=== PATIENT | female | born 2000 | race African-American/Black ===

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

== ENCOUNTER 2021-03-22 17:55 | Emergency (ER) | payer OTHER ==
[~2021-03-22] VITALS: Ht 162.6 cm; Wt 86.9 kg
[2021-03-22 18:12] VITALS: BP 120/51
--- NOTE | 2021-03-22 18:16 | NUR ---
PATIENT AMBULATED TO BED 4.
--- NOTE | 2021-03-22 19:15 | NUR ---
GAVE REPORT TO BETHANIE RM. TRANSFER OF CARE AT THIS TIME.
[2021-03-22 19:36] VITALS: BP 120/51
--- NOTE | 2021-03-22 19:36 | NUR ---
PATIENT CLEARED FOR DISCHARGE AT THIS TIME. PATIENT ADVISED OF NEGATIVE HCG RESULT, ADVISED TO FOLLOW UP WITH OB AND RETURN IF CONDITION WORSENS. DENIES ANY FURTHER QUESTIONS.
[2021-03-22] MEDS ORDERED: ACET-2619 PO (19:37)
== END 2021-03-22 19:36 | disposition home or self-care (01) ==
LOC: MED 17:55
DX: R10.2 Pelvic and perineal pain (principal); Z32.02 Encounter for pregnancy test, result negative; Z79.899 Other long term (current) drug therapy
CPT/HCPCS: 81002; 81025; 99282

== ENCOUNTER 2021-03-28 15:07 | Emergency (ER) | payer OTHER ==
[~2021-03-28] VITALS: Ht 165.1 cm; Wt 88.0 kg
[~2021-03-28 15:07] MED LIST: ACET-2619 PO
[2021-03-28 15:09] VITALS: BP 129/80
--- NOTE | 2021-03-28 15:17 | NUR ---
PT AMB TO BED 12.
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
--- NOTE | 2021-03-28 15:33 | NUR ---
DR. HUSAIN AT PT BEDSIDE FOR FURTHER EVALUATION.
--- NOTE | 2021-03-28 15:35 | NUR ---
Female X Ray Inspector accompanied female patient for Breast Exam.
[2021-03-28] MEDS: HYDROcodone/APAP 5/325 MG 1 TAB TAB PO ONE (15:43)
--- NOTE | 2021-03-28 15:56 | NUR ---
LEARNING MANAGER AT PT BEDSIDE.
--- NOTE | 2021-03-28 17:05 | NUR ---
PT RESTING IN BED, VISIBLE EQUAL RISE AND FALL OF CHEST, VSS, WILL CONTINUE TO MONITOR.
[2021-03-28] MEDS ORDERED: IBUP-2213 PO (17:17)
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
--- NOTE | 2021-03-28 17:55 | NUR ---
Patient discharged with v/s stable. Written and verbal after care instructions given [facility] [employer] [facility] and explained. Patient alert, oriented and verbalized understanding of instructions. Ambulatory with steady gait. All questions addressed prior to discharge. ID band removed. Patient advised to follow up with PMD. Rx of IBUPROFEN given. Patient educated on indication of medication including possible reaction and side effects. Opportunity to ask questions provided and answered.
[2021-03-28 18:11] VITALS: BP 124/74
== END 2021-03-28 18:12 | disposition home or self-care (01) ==
LOC: MED 15:07
DX: S90.32XA Contusion of left foot, initial encounter (principal); R07.89 Other chest pain; N64.4 Mastodynia; Z79.1 Long term (current) use of non-steroidal anti-inflammatories (NSAID); Z79.899 Other long term (current) drug therapy; V89.2XXA Person injured in unspecified motor-vehicle accident, traffic, initial encounter; Y93.89 Activity, other specified; Y92.410 Unspecified street and highway as the place of occurrence of the external cause; Y99.8 Other external cause status
CPT/HCPCS: 71045; 73630; 99284; Q0092

== ENCOUNTER 2021-07-10 19:31 | Emergency (ER) | payer OTHER ==
[~2021-07-10] VITALS: Ht 165.1 cm; Wt 81.6 kg
[~2021-07-10 19:31] MED LIST changes: +IBUP-2213 PO
[2021-07-10 19:39] VITALS: BP 137/85
--- NOTE | 2021-07-10 19:42 | NUR ---
PT TAKEN TO LOBBY.
--- NOTE | 2021-07-10 19:53 | NUR ---
PT TAKEN TO BED 2
--- NOTE | 2021-07-10 19:53 | NUR ---
Jannie tom in [facility] - 07/10/21 at 1953 by [facility] PT TAKENT O BED 02
--- NOTE | 2021-07-10 19:59 | NUR ---
LABS DRWN AT BEDSIDE
[2021-07-10] MEDS ORDERED: MORPHINE SULFATE 4 MG/ML SYR IVP ONE (20:00)
[2021-07-10] MEDS ORDERED: ONDANSETRON 4 MG/2 ML VIAL IVP ONE (20:00)
--- NOTE | 2021-07-10 20:05 | NUR ---
21 Y/O FEMALE BIB FAMILY, C/O LRQ PAIN X2 HRS. PT STATES PAIN CAME SUDDENLY WHILE DOING DISHES AT HOME; DENIES TRAUMA. +N/V, DENIES DIARRHEA; SKIN IS PINK/WARM/DRY; AAOX4 AND STATES SHE CANNOT WALK DUE TO THE PAIN BUT IS NORMALLY AMBULATORY; LUNGS CLEAR BL; HR EVEN AND REGULAR; PT DENIES ANY FEVER, CP, SOB, OR COUGH AT THIS TIME; PT DENIES ANY DYSURIA OR CONSTIPATION. PATIENT STATES PAIN OF 9/10 AT THIS TIME; VSS; PATIENT POSITIONED FOR COMFORT; HOB ELEVATED; BEDRAILS UP X2; BED DOWN. ER MD MADE AWARE OF PT STATUS. PT DENIES PMH, ALLERGIES, OR MEDS.
--- NOTE | 2021-07-10 20:10 | NUR ---
URINE COLLECTED BY TECHNICAL SUPPORT SPECIALIST
[2021-07-10 20:21] LABS: BASOPHILS # (AUTO) 0.1 K/uL (0.00-0.22); BASOPHILS % (AUTO) 0.9 % (0.0-2.0); EOSINOPHILS % (AUTO) 0.7 % (0.0-4.0); HEMATOCRIT 41.9 % (36-48); LYMPHOCYTES # (AUTO) 2.6 K/uL (2.5-16.5); MEAN CORPUSCULAR HEMOGLOBIN 31 pg (27-31); MEAN CORPUSCULAR HGB CONC 34 g/dL (33-37); MONOCYTES # (AUTO) 0.5 K/uL (0.8-1.0); MONOCYTES % (AUTO) 7.7 % (1.7-9.3); NEUTROPHILS % (AUTO) 48.7 % (42.2-75.2); PLATELET COUNT (AUTO) 262 K/uL (140-450); RED BLOOD CELL COUNT(AUTO) 4.56 MIL/uL (4.20-5.40); RED CELL DISTRIBUTION WIDTH 12.8 % (11.6-13.7); WHITE BLOOD COUNT (AUTO) 6.2 K/uL (4.5-11.0)
[2021-07-10 20:28] LABS: APPEARANCE,URINE CLEAR (CLEAR); BILIRUBIN,URINE NEGATIVE (NEGATIVE); BLOOD, URINE 3+ (NEGATIVE); COLOR,URINE YELLOW (YELLOW); LEUKOCYTE ESTERASE ,URINE NEGATIVE (NEGATIVE); NITRITE, URINE NEGATIVE (NEGATIVE); UGLUCOSE NEGATIVE (NEGATIVE)
[2021-07-10 20:37] LABS: ALBUMIN 4.4 g/dL (3.4-5.0); ANION GAP 13.9 (8-16); CARBON DIOXIDE 25.5 mmol/L (21-32); CREATININE 1.1 mg/dL (0.6-1.3); POTASSIUM 3.4 mmol/L (3.5-5.1); TOTAL BILIRUBIN 0.3 mg/dL (0.0-1.0)
[2021-07-10 20:42] LABS: RBC,URINE TOO NUMEROUS TO COUN /HPF (0-5); WBC,URINE 0-5 /HPF (0-5)
[2021-07-10] MEDS ORDERED: KETOROLAC 15 MG/ML VIAL IVP ONE (20:50)
--- NOTE | 2021-07-10 22:13 | NUR ---
ULTRASOUND AT BEDSIDE
[2021-07-10] MEDS ORDERED: cephALEXin 500 MG CAP PO ONE (22:55)
[2021-07-10] MEDS ORDERED: CEPH-588 PO (23:14)
[2021-07-10 23:30] VITALS: BP 137/85
--- NOTE | 2021-07-10 23:30 | NUR ---
Patient discharged with v/s stable. Written and verbal after care instructions given and explained. Patient alert, oriented and verbalized understanding of instructions. Ambulatory with steady gait. All questions addressed prior to discharge. ID band removed. Patient advised to follow up with PMD. Rx of Keflex given. Patient educated on indication of medication including possible reaction and side effects. Opportunity to ask questions provided and answered. VSS, A/OX4, UNLABORED BREATHING, AMBULATORY, AND CALM DEMEANOR.
--- NOTE | 2021-07-10 23:33 | NUR ---
Jannie tom in [facility] - 07/10/21 at 2333 by [email or web address] HARITHAAY AT BEDSIDE
[2021-07-11] MEDS ORDERED: IBUP-2213 PO (09:43)
[2021-07-11] MEDS ORDERED: ACET-8386 PO (09:43)
[2021-07-11] MEDS ORDERED: ONDA8TAB87 PO (09:43)
== END 2021-07-10 23:30 | disposition home or self-care (01) ==
LOC: MED 19:31
DX: R10.31 Right lower quadrant pain (principal); Z79.1 Long term (current) use of non-steroidal anti-inflammatories (NSAID); Z79.899 Other long term (current) drug therapy; Z79.2 Long term (current) use of antibiotics
CPT/HCPCS: 36415; 74176; 76830; 80053; 81001; 83690; 85025; 87086; 96374; 96375; 99284; J1885; J2270; J2405; Q0092

== ENCOUNTER 2021-07-11 05:45 | Emergency (ER) | payer OTHER ==
[~2021-07-11] VITALS: Ht 165.1 cm; Wt 81.6 kg
[~2021-07-11 05:45] MED LIST changes: +CEPH-588 PO
[2021-07-11 05:51] VITALS: BP 141/90
--- NOTE | 2021-07-11 05:51 | NUR ---
PATIENT BIBA FROM HOME WITH C/O OF 02/18 ABD PAIN, BACK PAIN AND UTI. +NAUSEA. PER EMS PT DENIED ZOFRAN. PT AMA NOT TOO LONG AGO. AAOX4. PATIENT CRYING AND DENIES TAKING ANY MEDICATIONS OTHER THAN THE MEDICATIONS GIVEN IN THE LAST ER VISIT. DENIES HX, RX AND ALLERGIES
--- NOTE | 2021-07-11 05:52 | NUR ---
Dr. Cowart examining patient.
--- NOTE | 2021-07-11 05:52 | NUR ---
PT NELI ALS. TAKEN TO BED 11
--- NOTE | 2021-07-11 06:41 | NUR ---
PT TAKEN TO RADIOLOGY
[2021-07-11 06:50] LABS: BASOPHILS % (AUTO) 0.6 % (0.0-2.0); EOSINOPHILS % (AUTO) 0.1 % (0.0-4.0); HEMATOCRIT 40.7 % (36-48); HEMOGLOBIN 13.6 g/dL (12.0-16.0); LYMPHOCYTES # (AUTO) 1.3 K/uL (2.5-16.5); LYMPHOCYTES % (AUTO) 20.6 % (20.5-51.1); MEAN CORPUSCULAR HEMOGLOBIN 31 pg (27-31); MEAN CORPUSCULAR HGB CONC 33 g/dL (33-37); MEAN CORPUSCULAR VOLUME 92.5 fL (80-94); MONOCYTES # (AUTO) 0.4 K/uL (0.8-1.0); MONOCYTES % (AUTO) 6.6 % (1.7-9.3); NEUTROPHILS # (AUTO) 4.6 K/uL (1.8-7.7); NEUTROPHILS % (AUTO) 72.1 % (42.2-75.2); PLATELET COUNT (AUTO) 227 K/uL (140-450); RED CELL DISTRIBUTION WIDTH 12.8 % (11.6-13.7); WHITE BLOOD COUNT (AUTO) 6.4 K/uL (4.5-11.0)
--- NOTE | 2021-07-11 06:54 | NUR ---
Ultrasound at bedside.
--- NOTE | 2021-07-11 06:54 | NUR ---
PT RETURN FROM CT
[2021-07-11] MEDS: ONDANSETRON 4 MG/2 ML VIAL IVP ONE (07:00)
[2021-07-11] MEDS: MORPHINE SULFATE 2 MG/ML SYR IVP ONE (07:05)
[2021-07-11] MEDS: NACL 0.9% 1,000 ML IV SCH (07:06)
[2021-07-11 07:08] LABS: ALBUMIN 4.3 g/dL (3.4-5.0); ANION GAP 15.5 (8-16); CARBON DIOXIDE 24.6 mmol/L (21-32); CREATININE 0.9 mg/dL (0.6-1.3); POTASSIUM 4.1 mmol/L (3.5-5.1); TOTAL BILIRUBIN 0.5 mg/dL (0.0-1.0)
--- NOTE | 2021-07-11 07:17 | NUR ---
Pt report given to Liz KOVACS and Camila KOVACS. Transfer of care at this time.
--- NOTE | 2021-07-11 07:21 | NUR ---
REPORT RECEIVED FROM DILSHAD RN. TRANSFER OF CARE AT THIS TIME.
[2021-07-11] MEDS ORDERED: IBUP-2213 PO (09:43)
[2021-07-11] MEDS ORDERED: ACET-8386 PO (09:43)
[2021-07-11] MEDS ORDERED: ONDA8TAB87 PO (09:43)
--- NOTE | 2021-07-11 09:50 | NUR ---
Patient discharged with v/s stable. Written and verbal after care instructions given and explained about n/v and abdominal pain. Patient alert, oriented and verbalized understanding of instructions. Ambulatory with steady gait. All questions addressed prior to discharge. ID band removed. Patient advised to follow up with PMD. Rx of ibuprofen, norco, and zofran given. Patient educated on indication of medication including possible reaction and side effects. Opportunity to ask questions provided and answered.
[2021-07-11 10:00] VITALS: BP 105/59
== END 2021-07-11 09:50 | disposition home or self-care (01) ==
LOC: MED 05:45
DX: R10.31 Right lower quadrant pain (principal); R11.2 Nausea with vomiting, unspecified
CPT/HCPCS: 36415; 74177; 76856; 80053; 81002; 81025; 83690; 85025; 96361; 96374; 96375; 99285; J2270; J2405; J7030; Q0092; Q9967

== ENCOUNTER 2021-11-19 20:53 | Emergency (ER) | payer OTHER ==
[~2021-11-19] VITALS: Ht 165.1 cm; Wt 81.6 kg
[~2021-11-19 20:53] MED LIST changes: +ACET-8386 PO; +ONDA8TAB87 PO
[2021-11-19 21:13] VITALS: BP 129/73
--- NOTE | 2021-11-19 21:19 | NUR ---
TO CHAIR C FOLLOWING TRIAGE
--- NOTE | 2021-11-19 21:53 | NUR ---
PT CAME TO TRIAGE AND SAID THEY WERE LEAVING. LWBS
== END 2021-11-19 21:54 | disposition left against medical advice (07) ==
LOC: MED 20:53
DX: R21 Rash and other nonspecific skin eruption (principal); Z53.21 Procedure and treatment not carried out due to patient leaving prior to being seen by health care provider

== ENCOUNTER 2022-02-18 08:35 | Emergency (ER) | payer OTHER ==
[~2022-02-18] VITALS: Ht 162.6 cm; Wt 83.5 kg
[2022-02-18 09:19] VITALS: BP 123/83
[2022-02-18] MEDS ORDERED: FLUCONAZOLE 100 MG TAB PO ONE (11:25)
[2022-02-18 12:08] LABS: BILIRUBIN,URINE NEGATIVE (NEGATIVE); BLOOD, URINE 3+ (NEGATIVE); COLOR,URINE YELLOW (YELLOW); LEUKOCYTE ESTERASE ,URINE TRACE (NEGATIVE); NITRITE, URINE NEGATIVE (NEGATIVE); UGLUCOSE NEGATIVE (NEGATIVE)
[2022-02-18 12:20] LABS: APPEARANCE,URINE HAZY (CLEAR)
[2022-02-18 12:38] LABS: CALCIUM OXALATE CRYSTALS,UR None Seen /HPF (None Seen); COARSE GRANULAR CASTS,URINE None Seen /LPF (None Seen); FINE GRANULAR CASTS,URINE None Seen /LPF (None Seen); HYALINE CASTS, URINE None Seen /LPF (None Seen); OTHER CASTS, URINE None Seen /LPF (None Seen); OTHER CRYSTALS,URINE None Seen /HPF (None Seen); RED BLOOD CELL CASTS,URINE None Seen /LPF (None Seen); TRICHOMONAS,URINE None Seen /HPF (None Seen); TRIPLE PHOSPHATE CRYSTAL,UR None Seen /HPF (None Seen); URIC ACID CRYSTALS,URINE None Seen /HPF (None Seen); URINE AMORPHOUS URATE None Seen /HPF (None Seen); WAXY CASTS,URINE None Seen /LPF (None Seen); YEAST,URINE None Seen /HPF (None Seen)
[2022-02-18] MEDS ORDERED: CEPH-588 PO (13:00)
[2022-02-18 13:15] VITALS: BP 112/68
== END 2022-02-18 13:15 | disposition home or self-care (01) ==
LOC: MED 08:35
DX: N39.0 Urinary tract infection, site not specified (principal); B37.9 Candidiasis, unspecified
CPT/HCPCS: 81001; 81025; 87086; 87491; 99283

== ENCOUNTER 2022-09-26 15:23 | Emergency (ER) | payer OTHER ==
[~2022-09-26] VITALS: Ht 165.1 cm; Wt 87.5 kg
[~2022-09-26 15:23] MED LIST changes: -ACET-8386 PO; +ACET-8905 PO
--- NOTE | 2022-09-26 15:23 | NUR ---
PATIENT BIBA TO LOBBY
[2022-09-26 16:45] VITALS: BP 137/93
--- NOTE | 2022-09-26 17:45 | NUR ---
Patient discharged with v/s stable. Written and verbal after care instructions given and explained. Patient verbalized understanding. Ambulatory with steady gait. All questions addressed prior to discharge. Advised to follow up with PMD. PT. WITH NO SOB, NO ACUTE DISTRESS. WAKE AND WALKING AND TALKING WITH NO DIFFICULTY. STABLE FOR [facility] HOME
== END 2022-09-26 17:45 | disposition home or self-care (01) ==
LOC: MED 15:23
DX: R06.02 Shortness of breath (principal); Z79.899 Other long term (current) drug therapy
CPT/HCPCS: 71045; 99283

== ENCOUNTER 2023-01-26 19:29 | Emergency (ER) | payer OTHER ==
[~2023-01-26] VITALS: Ht 165.1 cm; Wt 81.6 kg
[2023-01-26 19:55] VITALS: BP 101/49; PULSE 104; RESP 16; TEMP 98; O2SAT 100
[2023-01-26 20:36] LABS: APPEARANCE,URINE HAZY (CLEAR); BILIRUBIN,URINE NEGATIVE (NEGATIVE); BLOOD, URINE NEGATIVE (NEGATIVE); COLOR,URINE YELLOW (YELLOW); LEUKOCYTE ESTERASE ,URINE 1+ (NEGATIVE); NITRITE, URINE NEGATIVE (NEGATIVE); PH,URINE 7.5 (5.0-9.0); PROTEIN,URINE NEGATIVE (NEGATIVE); UGLUCOSE NEGATIVE (NEGATIVE)
[2023-01-26 20:47] LABS: BACTERIA,URINE 2+ /HPF (None Seen); RBC,URINE NONE SEEN /HPF (0-5); SQUAMOUS EPITHELIAL CELL,UR 4-10 (MOD) /LPF (0-3 (FEW))
[2023-01-26] MEDS ORDERED: CEPH-588 PO (21:00)
[2023-01-26 21:06] VITALS: BP 103/52; PULSE 98; RESP 18; TEMP 98.7; O2SAT 99
== END 2023-01-26 21:03 | disposition home or self-care (01) ==
LOC: MED 19:29
DX: N39.0 Urinary tract infection, site not specified (principal); Z79.899 Other long term (current) drug therapy
CPT/HCPCS: 81001; 81025; 87086; 99283

== ENCOUNTER 2023-02-04 09:56 | Emergency (ER) | payer OTHER ==
[~2023-02-04] VITALS: Ht 165.1 cm; Wt 90.0 kg
[2023-02-04 10:10] VITALS: BP 122/62; PULSE 78; RESP 20; TEMP 97.7; O2SAT 100
[2023-02-05] MEDS ORDERED: FLUC150T PO (04:26)
== END 2023-02-04 11:28 | disposition left against medical advice (07) ==
LOC: MED 09:56
DX: L29.9 Pruritus, unspecified (principal); M54.50 Low back pain, unspecified; R35.0 Frequency of micturition; Z53.21 Procedure and treatment not carried out due to patient leaving prior to being seen by health care provider
CPT/HCPCS: 81025; 99281

== ENCOUNTER 2023-02-05 01:20 | Emergency (ER) | payer OTHER ==
[~2023-02-05] VITALS: Ht 165.1 cm; Wt 86.2 kg
[2023-02-05 01:24] VITALS: BP 125/87; PULSE 80; RESP 17; TEMP 97.8; O2SAT 100
[2023-02-05] MEDS ORDERED: FLUC150T PO (04:26)
[2023-02-05 04:33] VITALS: BP 125/72; PULSE 62; RESP 14; O2SAT 100
== END 2023-02-05 04:31 | disposition home or self-care (01) ==
LOC: MED 01:20
DX: B37.9 Candidiasis, unspecified (principal); Z79.899 Other long term (current) drug therapy
CPT/HCPCS: 81002; 81025; 99283

== ENCOUNTER 2023-07-07 15:31 | Emergency (ER) | payer SELFPAY ==
[~2023-07-07] VITALS: Ht 165.1 cm; Wt 74.8 kg
[~2023-07-07 15:31] MED LIST changes: +FLUC150T PO
[2023-07-07 16:44] VITALS: BP 124/91; PULSE 89; RESP 18; TEMP 98.2; O2SAT 99
[2023-07-07 18:12] LABS: ANION GAP 10.9 (8-16); CALCIUM 9.4 mg/dL (8.5-10.1); CARBON DIOXIDE 24.7 mmol/L (21-32); CREATININE 0.7 mg/dL (0.6-1.3); POTASSIUM 3.6 mmol/L (3.5-5.1)
[2023-07-07 19:12] LABS: APPEARANCE,URINE CLEAR (CLEAR); BILIRUBIN,URINE NEGATIVE (NEGATIVE); BLOOD, URINE NEGATIVE (NEGATIVE); COLOR,URINE YELLOW (YELLOW); LEUKOCYTE ESTERASE ,URINE NEGATIVE (NEGATIVE); NITRITE, URINE NEGATIVE (NEGATIVE); PH,URINE 6.5 (5.0-9.0); PROTEIN,URINE NEGATIVE (NEGATIVE); UGLUCOSE NEGATIVE (NEGATIVE); UROBILINOGEN,URINE 0.2 EU/dL (0.2 - 1)
[2023-07-07] MEDS ORDERED: LOPE1TAB14 PO (20:15)
[2023-07-07] MEDS ORDERED: IBUP-2213 PO (20:15)
[2023-07-07] MEDS: KETOROLAC 30 MG/ML VIAL IM ONE (20:23)
== END 2023-07-07 20:43 | disposition home or self-care (01) ==
LOC: MED 15:31
DX: R19.7 Diarrhea, unspecified (principal); R10.84 Generalized abdominal pain; R20.0 Anesthesia of skin; Z79.899 Other long term (current) drug therapy
CPT/HCPCS: 36415; 80048; 81003; 81025; 96372; 99283; J1885

== ENCOUNTER 2024-02-02 19:43 | Emergency (ER) | payer SELFPAY ==
[~2024-02-02] VITALS: Ht 165.1 cm; Wt 86.2 kg
[~2024-02-02 19:43] MED LIST changes: +LOPE1TAB14 PO
[2024-02-02 19:49] VITALS: BP 126/77; PULSE 92; RESP 20; TEMP 98.5; O2SAT 100
[2024-02-03] MEDS ORDERED: IBUP-2213 PO (00:20)
[2024-02-03] MEDS: IBUPROFEN 600 MG TAB PO ONE (00:27)
[2024-02-03 00:28] VITALS: BP 122/66; PULSE 74; RESP 18; O2SAT 100
== END 2024-02-03 00:35 | disposition home or self-care (01) ==
LOC: MED 19:43
DX: S16.1XXA Strain of muscle, fascia and tendon at neck level, initial encounter (principal); Z79.899 Other long term (current) drug therapy; V49.9XXA Car occupant (driver) (passenger) injured in unspecified traffic accident, initial encounter; Y93.89 Activity, other specified; Y92.89 Other specified places as the place of occurrence of the external cause; Y99.8 Other external cause status
CPT/HCPCS: 71045; 81025; 99283